=== PATIENT | male | born 1990 | race Caucasian/White ===

== ENCOUNTER 2018-06-27 15:43 | Emergency (ER) | payer BC ==
[2018-06-27 15:51] VITALS: RESP 18; BMI 41.9
[2018-06-27 16:07] LABS: BASO # 0.02 K/mm3 (0.0-2.0); BASO % 0.2 % (0.0-3.0); EOS # 0.1 (0.0-0.7); EOS % 1.5 % (1.5-5.0); HEMOGLOBIN 14.1 g/dL (14.0-18.0); LYMPH # 2.7 (1.2-3.4); LYMPH % 28.5 % (22.0-35.0); MEAN CELL VOLUME 85.5 fl (80.0-105.0); MEAN CORPUSCULAR HEMOGLOBIN 28.9 pg (25.0-35.0); MEAN CORPUSCULAR HGB CONC 33.8 g/dl (31.0-37.0); MEAN PLATELET VOLUME 9.3 fl (7.0-11.0); MONO # 0.8 (0.1-0.6); MONO % 8.2 % (1.0-6.0); RBC 4.88 10^6/uL (3.5-6.1); RED CELL DISTRIBUTION WIDTH 13.7 % (11.5-14.5); WHITE BLOOD COUNT 9.6 10^3/uL (4.5-11.0)
[2018-06-27 16:23] LABS: ALB/GLOB RATIO 1.1 (1.1-1.8); ALBUMIN 4.7 g/dL (3.0-4.8); ALT/SGPT 48 U/L (7-56); AST/SGOT 55 U/L (17-59); BLOOD UREA NITROGEN 14 mg/dL (7-21); CALCIUM 8.8 mg/dL (8.4-10.5); GFR NON-AFRICAN AMERICAN > 60
--- NOTE | 2018-06-27 16:32 | ED PDOC ---
Arrival/HPI - General Chief Complaint: Chest Pain Historian: Patient - History of Present Illness Narrative History of Present Illness (Text): 06/27/18 16:32 28 year old male, with no significant past medical history, presents to emergency department complaining of intermittent chest pain for the past 2 months. Patient states that he experiences worsening particularly when he emails and moves upward. Patient rates chest pain at a 3 or 4 level of severity currently. Patient reports being a former light smoker. Patient denies any syncope. Patient also any denies fevers, chills, headache, dizziness, shortness of breath, cough, abdominal pain, nausea, vomiting, diarrhea, back pain, neck pain, or any other complaints. Time/Duration: Other (2 months) Symptom Onset: Gradual Symptom Course: Unchanged Activities at Onset: Light Context: Home Past Medical History - Provider Review Nursing Documentation Reviewed: Yes - Infectious Disease Hx of Infectious Diseases: None - Psychiatric Hx Substance Use: No - Anesthesia Hx Anesthesia: No Hx Anesthesia Reactions: No Hx Malignant Hyperthermia: No Family/Social History - Physician Review Nursing Documentation Reviewed: Yes Family/Social History: Unknown Family HX Smoking Status: Never Smoked Hx Alcohol Use: Yes Frequency of alcohol use: Socially Hx Substance Use: No Allergies/Home Meds Allergies/Adverse Reactions: Allergies No Known Allergies Allergy (Verified 06/27/18 15:50) Home Medications: Home Meds Medication Instructions Recorded Confirmed No Known Home Med 06/27/18 06/27/18 Review of Systems - Physician Review All systems were reviewed & negative as marked: Yes - Review of Systems Constitutional: absent: Fevers Respiratory: absent: SOB, Cough, Wheezing Cardiovascular: Chest Pain Gastrointestinal: absent: Abdominal Pain, Diarrhea, Nausea, Vomiting Genitourinary Male: absent: Urinary Output Changes Musculoskeletal: absent: Back Pain, Neck Pain Physical Exam Vital Signs Reviewed: Yes Vital Signs Temp Pulse Resp BP Pulse Ox 06/27/18 15:50 98.0 F 78 18 147/94 H 99 06/27/18 15:45 74 19 147/94 H 99 Temperature: Afebrile Blood Pressure: Normal Pulse: Regular Respiratory Rate: Normal Appearance: Positive for: Well-Appearing, Non-Toxic, Comfortable Pain Distress: None Mental Status: Positive for: Alert and Oriented X 3 - Systems Exam Head: Present: Atraumatic, Normocephalic Pupils: Present: PERRL Extroacular Muscles: Present: EOMI Conjunctiva: Present: Normal Mouth: Present: Moist Mucous Membranes Neck: Present: Normal Range of Motion Respiratory/Chest: Present: Clear to Auscultation, Good Air Exchange. No: Respiratory Distress, Accessory Muscle Use, Wheezes, Rales, Rhonchi, Tender to Palpation (no tenderness to palpation on anterior chest wall ) Cardiovascular: Present: Regular Rate and Rhythm, Normal S1, S2. No: Murmurs Abdomen: No: Tenderness, Distention, Peritoneal Signs Back: Present: Normal Inspection Upper Extremity: Present: Normal Inspection. No: Cyanosis, Edema Lower Extremity: Present: Normal Inspection. No: Edema Neurological: Present: GCS=15, CN II-XII Intact, Speech Normal Skin: Present: Warm, Dry, Normal Color. No: Rashes Psychiatric: Present: Alert, Oriented x 3, Normal Insight, Normal Concentration Medical Decision Making ED Course and Treatment: 06/27/18 16:43 Impression: 28 year old male presents to emergency department complaining of intermittent chest pain for the past two months. Differential Diagnosis included but are not limited to: -- ACS -- Pericarditis -- Myocarditis Plan: -- EKG -- Labs -- Chest x-ray -- Toradol -- Urinalysis -- Reassess and disposition Prior Visits: Notes and results from previous visits were reviewed. Patient was last seen in the emergency department on Progress Notes: 06/27/18 17:43 Labs reviewed with no abnomalities found. Troponin negative. BNP WNL. D dimer negative. Patient communicated results and advised to follow up with a technician support engineer for further monitoring. Patient demonstrates understandinf and will follow up. He is stable for discharge. - Lab Interpretations Lab Results: Total Bilirubin 0.5 mg/dL (0.2-1.3) 06/27/18 15:56 AST 55 U/L (17-59) 06/27/18 15:56 ALT 48 U/L (7-56) 06/27/18 15:56 Alkaline Phosphatase 138 U/L (38-126) H 06/27/18 15:56 Total Protein 8.9 g/dL (5.8-8.3) H 06/27/18 15:56 Albumin 4.7 g/dL (3.0-4.8) 06/27/18 15:56 Globulin 4.2 gm/dL 06/27/18 15:56 Albumin/Globulin Ratio 1.1 (1.1-1.8) 06/27/18 15:56 - RAD Interpretation Narrative RAD Interpretations (Text): 06/27/18 15:55 Chest X-ray, reviewed by radiologist: FINDINGS: LUNGS: No active pulmonary disease. PLEURA: No significant pleural effusion identified, no pneumothorax apparent. CARDIOVASCULAR: No aortic atherosclerotic calcification present. Normal cardiac size. No pulmonary vascular congestion. OSSEOUS STRUCTURES: No significant abnormalities. VISUALIZED UPPER ABDOMEN: Normal. OTHER FINDINGS: None. IMPRESSION: No active disease. Radiology Orders: 06/27/18 15:55 CHEST PORTABLE [RAD] Stat Gps Field Data Collector: Radiologist - Scribe Statement The provider has reviewed the documentation as recorded by the Scribe Alban Lema All medical record entries made by the Scribe were at my direction and personally dictated by me. I have reviewed the chart and agree that the record accurately reflects my personal performance of the history, physical exam, medic al decision making, and the department course for this patient. I have also personally directed, reviewed, and agree with the discharge instructions and disposition. Disposition/Present on Arrival - Present on Arrival Any Indicators Present on Arrival: No History of DVT/PE: No History of Uncontrolled Diabetes: No Urinary Catheter: No History of Decub. Ulcer: No History Surgical Site Infection Following: None - Disposition Have Diagnosis and Disposition been Completed?: Yes Diagnosis: Pleurisy Disposition: HOME/ ROUTINE Disposition Time: 17:48 Patient Plan: Discharge Patient Problems: Current Active Problems Problem Status Onset Pleurisy Acute Condition: STABLE Discharge Instructions (ExitCare): Pleuritic Chest Pain (DC) Print Language: MAORI Additional Instructions: All medical record entries made by the Scribe were at my direction and personally dictated by me. I have reviewed the chart and agree that the record accurately reflects my personal performance of the history, physical exam, medical decision making, and the department course for this patient. I have also personally directed, reviewed, and agree with the discharge instructions and disposition. Please follow up with the technician support engineer Ref[place]: [facility] [place] [facility] [place] [place] - Follow up with primary Lizeth Macario MD [Medical Doctor] - Follow up with primary Arash Iglesias MD [Staff Provider] - Follow up with primary Forms: [employer] (Frisian)
[2018-06-27 16:34] LABS: TROPONIN I < 0.01 ng/mL
[2018-06-27 16:38] LABS: B-TYPE NATRIURETIC PEPTIDE < 11.1 pg/mL (0-450)
--- NOTE | 2018-06-27 16:55 | RAD ---
Date of service: 06/27/2018 HISTORY: SOB COMPARISON: No prior. FINDINGS: LUNGS: No active pulmonary disease. PLEURA: No significant pleural effusion identified, no pneumothorax apparent. CARDIOVASCULAR: No aortic atherosclerotic calcification present. Normal cardiac size. No pulmonary vascular congestion. OSSEOUS STRUCTURES: No significant abnormalities. VISUALIZED UPPER ABDOMEN: Normal. OTHER FINDINGS: None. IMPRESSION: No active disease.
[2018-06-27 18:07] VITALS: BP 110/51; PULSE 75; TEMP 98.1; O2SAT 100
--- NOTE | 2018-06-28 11:16 | CARD ---
APPROVED REPORT Date of service: 06/27/2018 EKG Measurement Heart [id number] <Conclusion> Normal sinus rhythm Moderate voltage criteria for LVH, may be normal variant Borderline ECG
== END 2018-06-27 19:14 | disposition home or self-care (01) ==
LOC: ED 15:43
DX: R09.1 Pleurisy (principal)
CPT/HCPCS: 71045; 80053; 83735; 83880; 84484; 85025; 85378; 93005; 96374; 99284; J1885